=== PATIENT | female | born 1995 | race Caucasian/White ===

== ENCOUNTER → 2018-04-09 11:40 | Emergency (ER) | payer SELFPAY ==
[~2018-04-09 11:40] MED LIST: PPD test dose* 5 TU/0.1 ML TEST (*USE PPD ORDER SET*) ONE
== END | disposition home or self-care (01) ==
LOC: OHCORT 11:40
DX: R76.11 Nonspecific reaction to tuberculin skin test without active tuberculosis (principal)

== ENCOUNTER → 2018-05-10 10:09 | Emergency (ER) | payer SELFPAY | END | disposition home or self-care (01) | LOC: OHCORT 10:09 | DX: R76.11 Nonspecific reaction to tuberculin skin test without active tuberculosis (principal) ==

== ENCOUNTER 2019-10-17 13:31 | Emergency (ER) | payer BC ==
[2019-10-17 14:19] VITALS: BP 116/72
--- NOTE | 2019-10-17 14:59 | UC ---
Respiratory Complaint HPI - HPI Summary HPI Summary: Pt presents with c/o nasal congestion, productive cough with blood streaked mucus, PND X 3-4 days. Pt states that her symptoms have worsened over the last 24 hours and is concerned that about an infection because she is scheduled to have her wisdom teeth removed in two weeks. - History of Current Complaint Chief Complaint: UCRespiratory Stated Complaint: SINUS COMPLAINT Time Seen by Provider: 10/17/19 14:49 Hx Obtained From: Patient Hx Last Menstrual Period: 09/28/19 ?: No Onset/Duration: Gradual Onset, Lasting Days, Worse Since - onset Timing: Constant Severity Initially: Mild Severity Currently: Moderate Pain Intensity: 0 Character: Cough: Productive - blood streaked yellow mucus Aggravating Factors: Deep Breaths, Recumbent Position Alleviating Factors: Nothing Associated Signs And Symptoms: Positive: Hemoptysis, URI, Nasal Congestion - Risk Factors Pulmonary Embolism Risk Factors: Negative Cardiac Risk Factors: Negative Pseudomonas Risk Factors: Negative Tuberculosis Risk Factors: Negative - Allergies/Home Medications Allergies/Adverse Reactions: Allergies Allergy/AdvReac Type Severity Reaction Status Date / Time Sulfa (Sulfonamide Allergy Rash Verified 10/17/19 14:15 Antibiotics) PMH/Surg Hx/FS Hx/Imm Hx Previously Healthy: Yes Endocrine History: Thyroid Disease - Surgical History Surgical History: Yes Surgery Procedure, Year, and Place: R 4th finger - Family History Known Family History: Positive: Other - no FMH of blood disorders - Social History Occupation: Student Alcohol Use: Occasionally Substance Use Type: None Smoking Status (MU): Never Smoked Tobacco Have You Smoked in the Last Year: No - Immunization History Vaccination Up to Date: Yes Review of Systems All Other Systems Reviewed And Are Negative: Yes Constitutional: Positive: Negative Skin: Positive: Negative Eyes: Positive: Negative ENT: Positive: Sinus Congestion Respiratory: Positive: Cough Cardiovascular: Positive: Negative Gastrointestinal: Positive: Negative Genitourinary: Positive: Negative Motor: Positive: Negative Neurovascular: Positive: Negative Musculoskeletal: Positive: Negative Neurological: Positive: Negative Psychological: Positive: Negative Is Patient Immunocompromised?: No Physical Exam Triage Information Reviewed: Yes Appearance: Well-Appearing Vital Signs: Initial Vital Signs Temp 98.1 F 10/17/19 14:15 Pulse 70 10/17/19 14:15 Resp 16 10/17/19 14:15 BP 116/72 10/17/19 14:15 Pulse Ox 100 10/17/19 14:15 Vital Signs Reviewed: Yes Eye Exam: Normal ENT: Positive: Nasal congestion, Other - PND Dental Exam: Normal Neck exam: Normal Respiratory Exam: Normal Cardiovascular Exam: Normal Musculoskeletal Exam: Normal Neurological Exam: Normal Psychological Exam: Normal Skin Exam: Normal Respiratory Course/Dx - Course Course Of Treatment: I discussed viral vs bacterial and pt is concerned that she has her wisdom teeth scheduled to be extracted in two weeks and thought she may need an antibiotic. I discussed that I thought the blood streaked mucus was from coughing harshly and pt did not seem to agree. - Differential Dx/Diagnosis Differential Diagnosis/HQI/PQRI: Bronchitis, Other - PND Provider Diagnosis: Productive cough Discharge ED - Sign-Out/Discharge Documenting (check all that apply): Patient Departure All imaging exams completed and their final reports reviewed: No Studies - Discharge Plan Condition: Stable Disposition: HOME Prescriptions: Amoxicillin PO (*) [Amoxicillin 500 MG CAP*] 500 mg PO Q12H #20 cap Guaifenesin/Pseudoephedrne HCl [Mucinex D ER 600-60 mg Tablet] 1 each PO Q12H # 14 tab.er.[id number] Patient Education Materials: Hemoptysis (ED), Acute Cough (ED) Referrals: Katie Albarado MD [Primary Care Provider] - If Needed Additional Instructions: Please follow up with your PCP as needed. - Billing Disposition and Condition Condition: STABLE Disposition: Home
== END 2019-10-17 15:03 | disposition home or self-care (01) ==
LOC: UCCORT 13:31
DX: R05 Cough (principal); R09.81 Nasal congestion; Z88.2 Allergy status to sulfonamides
CPT/HCPCS: 99212; G0463